=== PATIENT | male | born 1965 | race African-American/Black ===

== ENCOUNTER 2017-10-27 17:05 | Emergency (ER) | payer OTHER ==
[~2017-10-27] VITALS: Ht 185.4 cm; Wt 102.1 kg
[2017-10-27 17:30] VITALS: BP 157/95
[2017-10-27] MEDS ORDERED: LIDOCAINE 1% (LOCAL ANESTH.) PF 5ml SDV IJ ONE (21:30)
[2017-10-27] MEDS ORDERED: LIDOCAINE 2% (LOCAL ANESTH.) PF 5ml SDV ONE (21:36)
== END 2017-10-27 22:15 | disposition home or self-care (01) ==
LOC: ER 17:05
DX: L02.512 Cutaneous abscess of left hand (principal)
CPT/HCPCS: 10060

== ENCOUNTER 2017-12-05 12:23 | Emergency (ER) | payer OTHER ==
[~2017-12-05] VITALS: Ht 188 cm; Wt 102.1 kg
[2017-12-05 12:28] VITALS: BP 149/95
[2017-12-05] MEDS ORDERED: TETRACAINE HCL 0.5% OPTH(EYE) SOLN 4ML EACHEYE ONE (13:30)
== END 2017-12-05 13:49 | disposition home or self-care (01) ==
LOC: ER 12:23
DX: S05.01XA Injury of conjunctiva and corneal abrasion without foreign body, right eye, initial encounter (principal); X58.XXXA Exposure to other specified factors, initial encounter; Y93.89 Activity, other specified; Y99.8 Other external cause status; Y92.098 Other place in other non-institutional residence as the place of occurrence of the external cause

== ENCOUNTER 2018-05-07 18:03 | Emergency (ER) | payer OTHER ==
[~2018-05-07] VITALS: Ht 188 cm; Wt 102.1 kg
[2018-05-07 18:14] VITALS: BP 131/78
[2018-05-07] MEDS ORDERED: CLINDAMYCIN HCL 150 MG CAP PO ONE (18:45)
[2018-05-07] MEDS ORDERED: TETANUS-DIPTH-ACEL PERTUSSIS 0.5ML SYRG IM ONE (18:45)
[2018-05-07] MEDS ORDERED: LIDOCAINE W/ EPINEPHRINE 2% INJ 20ML VIAL IJ ONE (18:45)
[2018-05-07] MEDS ORDERED: cefTRIAXone SOD 1,000 MG VL IM ONE (18:45)
[2018-05-07] MEDS ORDERED: LIDOCAINE 1%HCL (LOCAL ANESTH) 10 ML MDV ONE (18:52)
[2018-05-07] MEDS ORDERED: LIDOCAINE 1% HCL (LOCAL ANESTH.) INJ 20ML MDV IJ ONE (19:00)
[2018-05-07] MEDS ORDERED: BACITRACIN-POLYMYXIN B TOPICAL OINT UD TOP ONE (19:15)
== END 2018-05-07 19:27 | disposition home or self-care (01) ==
LOC: ER 18:10
DX: S81.812A Laceration without foreign body, left lower leg, initial encounter (principal); Z88.0 Allergy status to penicillin; W54.0XXA Bitten by dog, initial encounter; Y93.01 Activity, walking, marching and hiking; Y99.8 Other external cause status; Y92.89 Other specified places as the place of occurrence of the external cause
CPT/HCPCS: 12004; 73590; 96372; 99283; J0696; J2001; 90715

== ENCOUNTER 2018-05-22 10:17 | Emergency (ER) | payer OTHER ==
[~2018-05-22] VITALS: Ht 188 cm; Wt 103.0 kg
[2018-05-22 10:25] VITALS: BP 142/90
== END 2018-05-22 11:23 | disposition home or self-care (01) ==
LOC: ER 10:17
DX: S81.812D Laceration without foreign body, left lower leg, subsequent encounter (principal); Z88.0 Allergy status to penicillin; X58.XXXD Exposure to other specified factors, subsequent encounter

== ENCOUNTER 2018-06-07 00:05 | Emergency (ER) | payer OTHER ==
[~2018-06-07] VITALS: Ht 188 cm; Wt 99.8 kg
[2018-06-07 00:10] VITALS: BP 140/77
[2018-06-07] MEDS ORDERED: cefTRIAXone SOD 1,000 MG VL IM ONE (01:15)
[2018-06-07] MEDS ORDERED: LIDOCAINE 2% (LOCAL ANESTH.) PF 5ml SDV ONE (01:59)
== END 2018-06-07 02:14 | disposition home or self-care (01) ==
LOC: ER 00:05
DX: S81.812D Laceration without foreign body, left lower leg, subsequent encounter (principal); W54.0XXD Bitten by dog, subsequent encounter
CPT/HCPCS: 96372; 99283; J0696; J2001

== ENCOUNTER 2018-08-01 15:25 | Emergency (ER) | payer OTHER ==
[~2018-08-01] VITALS: Ht 188 cm; Wt 104.3 kg
[2018-08-01 16:08] VITALS: BP 149/94
[2018-08-01] MEDS ORDERED: KETOROLAC TROMETH 60MG/2ML VIAL IM ONE (16:45)
[2018-08-01] MEDS ORDERED: diphenhdrAMINE HCL 50 MG/1 ML VL IM ONE (16:45)
== END 2018-08-01 17:18 | disposition home or self-care (01) ==
LOC: ER 15:25
DX: M51.37 Other intervertebral disc degeneration, lumbosacral region (principal); X50.0XXA Overexertion from strenuous movement or load, initial encounter; Y93.89 Activity, other specified; Y92.098 Other place in other non-institutional residence as the place of occurrence of the external cause; Y99.8 Other external cause status
CPT/HCPCS: 72100; 96372; 99283; J1200; J1885

== ENCOUNTER 2019-02-14 09:23 | Emergency (ER) | payer OTHER ==
[~2019-02-14] VITALS: Ht 188 cm; Wt 93.0 kg
[2019-02-14 10:10] LABS: Basophils # (auto) 0.1 uL; Basophils % (auto) 0.4 % (0.0-2.0); Eosinophils # (auto) 0.1 uL; Eosinophils % (auto) 0.3 % (0.0-7.0); Hematocrit 45.1 % (41.0-53.0); Lymphocytes # (auto) 2.2 uL; Lymphocytes % (auto) 10.2 % (10.0-50.0); Mean Corpuscular Hgb Conc. 33.3 g/dL (32.0-36.0); Mean Corpuscular Volume 86.9 fL (80.0-100.0); Monocytes # (auto) 1.3 uL; Monocytes % (auto) 6.2 % (0.0-12.0); Neutrophils # (auto) 17.6 uL; Neutrophils % (auto) 82.9 % (37.0-80.0); Platelet Count (auto) 265 10^3/uL (140-450); Red Blood Cells 5.19 10^6/uL (4.5-5.90); White Blood Cell 21.2 10^3/uL (4.4-10.8)
[2019-02-14 10:28] LABS: Albumin 3.7 g/dL (3.4-5.0); Calcium 9.6 mg/dL (8.5-10.1); Potassium 3.7 mmol/L (3.5-5.1)
[2019-02-14 10:31] LABS: BUN/Creatinine Ratio 10.6; Bilirubin, Total 0.6 mg/dL (0.2-1.0); Total Protein 7.9 g/dL (6.4-8.2)
[2019-02-14] MEDS ORDERED: SODIUM CHLORIDE 0.9% 1,000 ML IVB ONE (11:04)
[2019-02-14] MEDS ORDERED: KETOROLAC TROMETH 30 MG/ML 1ML VIAL IV ONE (11:15)
[2019-02-14] MEDS ORDERED: cefTRIAXone 1GM/50ML D5W 50 ML IV ONE (11:15)
[2019-02-14 11:35] LABS: Urine Bacteria FEW /hpf (None Seen); Urine Blood 2+ /uL (Negative); Urine Mucus FEW (None Seen); Urine Specific Gravity 1.023 (1.001-1.035); Urine WBC 1168 /hpf (0 - 3)
[2019-02-14 12:00] VITALS: BP 136/84
[2019-02-14] MEDS ORDERED: HYDROcodone-ACET 10/325MG TAB PO ONE (12:15)
== END 2019-02-14 13:15 | disposition home or self-care (01) ==
LOC: ER 09:28
DX: N45.1 Epididymitis (principal); N39.0 Urinary tract infection, site not specified; F17.210 Nicotine dependence, cigarettes, uncomplicated; F15.10 Other stimulant abuse, uncomplicated; Z88.0 Allergy status to penicillin
CPT/HCPCS: 36415; 76870; 80053; 81001; 85025; 93005; 94761; 96374; 96375; 99284; J0696; J1885; J7030

== ENCOUNTER 2020-11-30 07:38 | Emergency (ER) | payer OTHER ==
[~2020-11-30] VITALS: Ht 188 cm; Wt 72.6 kg
[2020-11-30 08:28] VITALS: BP 143/84
[2020-11-30] MEDS ORDERED: KETOROLAC TROMETH 60MG/2ML VIAL IM ONE (08:45)
== END 2020-11-30 09:20 | disposition home or self-care (01) ==
LOC: ER 07:38
DX: M17.12 Unilateral primary osteoarthritis, left knee (principal); F17.210 Nicotine dependence, cigarettes, uncomplicated; F15.10 Other stimulant abuse, uncomplicated; Z88.0 Allergy status to penicillin
CPT/HCPCS: 73562; 96372; 99283; J1885

== ENCOUNTER 2022-03-24 10:35 | Emergency (ER) | payer OTHER ==
[~2022-03-24] VITALS: Ht 185.4 cm; Wt 95.0 kg
[2022-03-24 17:15] VITALS: BP 133/82
== END 2022-03-24 19:00 | disposition left against medical advice (07) ==
LOC: ER 10:35
DX: M54.50 Low back pain, unspecified (principal); M79.605 Pain in left leg; M79.604 Pain in right leg; Z53.21 Procedure and treatment not carried out due to patient leaving prior to being seen by health care provider
CPT/HCPCS: 72100; 93005